=== PATIENT | male | born 1995 | race Hispanic/Latino ===

== ENCOUNTER 2021-09-05 12:25 | Emergency (ER) | payer SELFPAY ==
[2021-09-05] MEDS ORDERED: IBUPROFEN 400 MG TAB ONE (13:08)
--- NOTE | 2021-09-05 14:14 | RAD REPORT ---
EXAM DESCRIPTION: RAD - Wrist Right 3 View - 09/05/2021 1:53 pm CLINICAL HISTORY: PAIN COMPARISON: No comparisons FINDINGS/IMPRESSION: Ossified fragment along the dorsal aspect of the carpus. This could represent a triquetrum fracture. Correlate with site of pain.
--- NOTE | 2021-09-05 14:32 | EDPHYS ---
Physician Documentation [facility] Name: Greg Conway Age: 26 yrs Sex: Male : 1995 Arrival Date: 09/05/2021 Time: 12:27 Bed 17 Private MD: ED Physician Stephie Cleary HPI: 09/05 13:00 This 26 yrs old Male presents to ER via Ambulatory with complaints of Wrist cp Injury. 13:00 The patient or guardian reports injury, pain, swelling, tenderness. Context: resulted cp from a fall, while skateboarding, on an outstretched hand. Onset: The symptoms/episode began/occurred yesterday. 13:00 Associated signs and symptoms: Pertinent positives: swelling and pain to dorsum of cp right wrist, Pertinent negatives: cyanosis distally, decreased sensation distally. Historical: - Allergies: 12:36 PENICILLINS; vg1 12:36 Amoxicillin; vg1 - Home Meds: 12:36 None [Active]; vg1 - PMHx: 12:36 None; vg1 - PSHx: 12:36 Left wrist; vg1 - Immunization history:: Client reports having NOT received the Covid vaccine. - Social history:: Smoking status: Patient denies any tobacco usage or history of. ROS: 13:05 MS/extremity: Positive for pain, swelling, tenderness, of the dorsum of right wrist, cp Negative for paresthesias. 13:05 Constitutional: Negative for body aches, chills, fever. cp 13:05 Neck: Negative for pain with movement, pain at rest, stiffness. 13:05 Back: Negative for pain at rest, pain with movement. 13:05 Neuro: Negative for numbness, tingling, weakness. 13:05 All other systems are negative. Exam: 13:10 Head/Face: Normocephalic, atraumatic. cp 13:10 Constitutional: The patient appears in no acute distress, alert, awake, well developed, well nourished. 13:10 Neck: ROM/movement: is normal, is supple, without pain, no range of motions limitations. 13:10 Back: pain, is absent, ROM is normal. 13:10 Musculoskeletal/extremity: Extremities: grossly normal except: noted in the dorsum right wrist: pain, swelling, tenderness, ROM: limited active range of motion due to pain, in the right wrist, Perfusion: the extremity is normally perfused throughout, the right hand Sensation intact. Vital Signs: 12:34 BP 114 / 57; Pulse 60; Resp 16; Temp 97.9; Pulse Ox 100% on R/A; Weight 63.5 kg; Height vg1 5 ft. 7 in. (170.18 cm); Pain 10/10; 13:55 BP 103 / 88; Pulse 73; Resp 17; Pulse Ox 100% on R/A; tw2 12:34 Body Mass Index 21.93 (63.50 kg, 170.18 cm) vg1 Procedures: 14:35 Splinting: Splint applied to right wrist using wrist splint, applied by nurse. Examined cp by me, post splint application: neurovascular intact, Patient tolerated well. MDM: 12:50 Patient medically screened. cp 14:00 Differential diagnosis: dislocation, closed fracture, contusion, sprain, strain. cp 14:31 Data reviewed: vital signs, nurses notes, radiologic studies, plain films. cp 14:31 Test interpretation: by ED physician or midlevel provider: plain radiologic studies. cp Counseling: I had a detailed discussion with the patient and/or guardian regarding: the historical points, exam findings, and any diagnostic results supporting the discharge/admit diagnosis, radiology results. Response to treatment: the patient's symptoms have mildly improved after treatment, and as a result, I will discharge patient. ED course: Discussed results of xrays that showed concern for triquetrum fracture. Will discharge to home for continued monitoring with hand f/u. 09/05 12:53 Order name: XRAY Wrist RIGHT 3 view; Complete Time: 14:21 cp 09/05 14:22 Interpretation: Report reviewed. 09/05 14:24 Order name: Wrist Splint; Complete Time: 14:41 cp Administered Medications: 13:02 Drug: Ibuprofen 800 mg Route: PO; tw2 13:58 Follow up: Response: No adverse reaction; Pain is unchanged, physician notified tw2 Disposition: 09/06 07:45 STAFF ATTESTATION STATEMENT I was immediately available on-site in the Emergency sd2 Department for consultation in the care of the patient. Stephie Cleary MD. Disposition Summary: 09/05/21 14:31 Discharge Ordered Location: Home cp Problem: new cp Symptoms: have improved cp Condition: Stable cp Diagnosis - Displaced fracture of triquetrum [cuneiform] bone, right wrist, initial encounter cp for closed fracture Followup: cp - With: Colby Patrick MD - When: 2 - 3 days - Reason: Recheck today's complaints Discharge Instructions: - Wrist Fracture Treated With Immobilization cp - Discharge Summary Sheet tw2 Forms: - Medication Reconciliation Form cp - Thank You Letter cp - Antibiotic Education cp - Work release form tw2 - Prescription Opioid Use cp Prescriptions: - Ibuprofen 800 mg Oral Tablet - take 1 tablet by ORAL route every 8 hours As needed take with food; 30 tablet; cp Refills: 0, Product Selection Permitted Signatures: Dispatcher [employer] EDMS Abel Pollock PA PA Naa Chiu RN RN tw2 Aniya Stewart RN RN vg1 Stephie Cleary sd2
--- NOTE | 2021-09-05 14:32 | ER ---
Nurse's Notes [facility] Name: Greg Conway Age: 26 yrs Sex: Male : 1995 Arrival Date: 09/05/2021 Time: 12:27 Bed 17 Private MD: Diagnosis: Displaced fracture of triquetrum [cuneiform] bone, right wrist, initial encounter for closed fracture Presentation: 09/05 12:34 Chief complaint: Patient states: was skateboarding yesterday and fell off and landed on vg1 Right wrist. Right wrist appears to be swollen. Denies hitting head. Coronavirus screen: Vaccine status: Patient reports being unvaccinated. Client denies travel out of the [place] in the last 14 days. Ebola Screen: Patient denies exposure to infectious person. Patient denies travel to an Ebola-affected area in the 21 days before illness onset. Initial Sepsis Screen: Does the patient meet any 2 criteria? No. Patient's initial sepsis screen is negative. Does the patient have a suspected source of infection? No. Patient's initial sepsis screen is negative. Risk Assessment: Do you want to hurt yourself or someone else? Patient reports no desire to harm self or others. Onset of symptoms was September 04, 2021. 12:34 Method Of Arrival: Ambulatory vg1 12:34 Acuity: JEFF 4 vg1 Triage Assessment: 12:36 General: Appears in no apparent distress. comfortable, Behavior is calm, cooperative. vg1 Pain: Complains of pain in right wrist Pain currently is 10 out of 10 on a pain scale. Pain began 1 day ago. Musculoskeletal: Range of motion: limited in right wrist Swelling present in right wrist. 13:58 Injury Description: from falling and trying to catch himself. tw2 Historical: - Allergies: 12:36 PENICILLINS; vg1 12:36 Amoxicillin; vg1 - Home Meds: 12:36 None [Active]; vg1 - PMHx: 12:36 None; vg1 - PSHx: 12:36 Left wrist; vg1 - Immunization history:: Client reports having NOT received the Covid vaccine. - Social history:: Smoking status: Patient denies any tobacco usage or history of. Screenin:57 Abuse screen: Denies threats or abuse. Abuse screen: Denies threats or abuse. tw2 Nutritional screening: No deficits noted. Tuberculosis screening: No symptoms or risk factors identified. Fall Risk None identified. Assessment: 13:55 Reassessment: Patient appears in no apparent distress at this time. No changes from tw2 previously documented assessment. Patient and/or family updated on plan of care and expected duration. Pain level reassessed. Patient is alert, oriented x 3, equal unlabored respirations, skin warm/dry/pink. 14:41 Reassessment: Patient appears in no apparent distress at this time. No changes from tw2 previously documented assessment. Patient and/or family updated on plan of care and expected duration. Pain level reassessed. Patient is alert, oriented x 3, equal unlabored respirations, skin warm/dry/pink. 14:42 Reassessment: Patient appears in no apparent distress at this time. No changes from tw2 previously documented assessment. Patient and/or family updated on plan of care and expected duration. Pain level reassessed. Patient is alert, oriented x 3, equal unlabored respirations, skin warm/dry/pink. Vital Signs: 12:34 BP 114 / 57; Pulse 60; Resp 16; Temp 97.9; Pulse Ox 100% on R/A; Weight 63.5 kg; Height vg1 5 ft. 7 in. (170.18 cm); Pain 10/10; 13:55 BP 103 / 88; Pulse 73; Resp 17; Pulse Ox 100% on R/A; tw2 12:34 Body Mass Index 21.93 (63.50 kg, 170.18 cm) vg1 ED Course: 12:27 Patient arrived in ED. mr 12:36 Triage completed. vg1 12:36 Arm band placed on. vg1 12:38 Abel Pollock PA is PHCP. cp 12:38 Stephie Cleary is Attending Physician. cp 12:38 Naa Mcgraw, RN is Primary Nurse. tw2 12:38 Bed in low position. Call light in reach. Pulse ox on. NIBP on. tw2 13:55 XRAY Wrist RIGHT 3 view In Process Unspecified. EDMS 13:57 No provider procedures requiring assistance completed. Patient did not have IV access tw2 during this emergency room visit. 14:31 Colby Patrick MD is Referral Physician. cp Administered Medications: 13:02 Drug: Ibuprofen 800 mg Route: PO; tw2 13:58 Follow up: Response: No adverse reaction; Pain is unchanged, physician notified tw2 Medication: 13:57 VIS not applicable for this client. tw2 Outcome: 14:31 Discharge ordered by . cp 14:41 Discharged to home ambulatory. tw2 14:41 Condition: stable 14:41 Discharge instructions given to patient, Instructed on discharge instructions, follow up and referral plans. medication usage, CMS checks Demonstrated understanding of instructions, follow-up care, medications, CMS checks Prescriptions given X 1. 14:42 Patient left the ED. tw2 Signatures: Dispatcher [employer] EDNM Sarah Maher Abel Pollock, Naa Rios cp RN RN tw2 Aniya Stewart RN RN vg1 Corrections: (The following items were deleted from the chart) 12:38 12:34 Pulse 60bpm; Resp 16bpm; Pulse Ox 100% RA; Temp 97.9F; 63.5 kg; Height 5 ft. 7 vg1 in.; BMI: 21.9; Pain 10/10; vg1
[2021-09-05 15:03] VITALS: TEMP 97.9; O2SAT 100
[2021-09-05 15:05] VITALS: BP 103/88
== END 2021-09-05 14:42 | disposition home or self-care (01) ==
LOC: ER 12:25
PROC: 2W3CX1Z Immobilization of Right Lower Arm using Splint (ICD-10-PCS; principal; 2021-09-05)
DX: S62.111A Displaced fracture of triquetrum [cuneiform] bone, right wrist, initial encounter for closed fracture (principal); Z88.0 Allergy status to penicillin; Z88.1 Allergy status to other antibiotic agents
CPT/HCPCS: 99284